=== PATIENT | female | born 1965 | race Caucasian/White ===

== ENCOUNTER → 2016-04-17 | Outpatient (REF) | payer SELFPAY | LOC: LAB 17:56 | PROVIDERS: ATTEND Family Medicine | DX: Z53.9 Procedure and treatment not carried out, unspecified reason (principal) | CPT/HCPCS: 87088 ==

== ENCOUNTER 2016-04-24 16:26 | Outpatient (REF) | payer OTHER | END 2016-04-24 16:27 | LOC: CLAB.HERRA 16:26 | PROVIDERS: ATTEND Family Medicine | DX: R10.9 Unspecified abdominal pain (principal) | CPT/HCPCS: 87088 ==

== ENCOUNTER 2016-05-17 12:30 | Emergency (ER) | payer OTHER ==
[~2016-05-17] VITALS: Ht 162.6 cm; Wt 121.0 kg
[2016-05-17] MEDS ORDERED: ONDANSETRON 4 MG (ZOFRAN) ORAL DISSOLVE TAB PO ONE (13:20)
[2016-05-17 13:45] LABS: BASOPHILS % (AUTO) 0 % (0-2); EOSINOPHILS # (AUTO) 0.1 10^3uL; EOSINOPHILS % (AUTO) 1 % (0-4); LYMPHOCYTES # (AUTO) 3.1 X10^3; MEAN CORPUSCULAR HEMOGLOBIN 30.3 PG (26.0-34.0); MEAN CORPUSCULAR HGB CONC 34.7 g/dL (31.0-37.0); MEAN CORPUSCULAR VOLUME 87 FL (80-100); MEAN PLATELET VOLUME 9.2 FL (6.0-9.5); MONOCYTES # (AUTO) 1.3 X10^3; MONOCYTES % (AUTO) 11 % (3-11); NEUTROPHILS # (AUTO) 7.5 X10^3; NEUTROPHILS % (AUTO) 63 % (51-67); PLATELET COUNT 224 10^3uL (150-450); WHITE BLOOD COUNT 11.92 10^3uL (4.0-11.0)
[2016-05-17 13:46] LABS: BILIRUBIN,URINE Negative (Negative); COLOR,URINE Dark Yellow; GLUCOSE, URINE (UA) Negative (Negative); LEUKOCYTE ESTERASE ,URINE 2+ (Negative); UROBILINOGEN,URINE 0.2 mg/dL (0.2-1.0)
[2016-05-17 13:47] LABS: CLARITY,URINE Slightly Cloudy
[2016-05-17 13:53] LABS: URINE CENTRIFUGED VOLUME 12 mL
--- NOTE | 2016-05-17 14:05 | NUR ---
pt states nausea is better
--- NOTE | 2016-05-17 14:05 | NUR ---
ice water and soda crackers requested by pt, permission from to give
[2016-05-17 14:10] LABS: ALBUMIN 4.1 g/dL (3.4-5.0); ALKALINE PHOSPHATASE 302 U/L (38-126); ANION GAP 16.6 MEQ/L (3-15); BUN/CREATININE RATIO 10 (10-20); LIPASE* 83 U/L (23-300); TOTAL PROTEIN 7.9 g/dL (6.4-8.5)
[2016-05-17 15:10] VITALS: BP 121/77
[2016-05-18 20:24] LABS: HEPATITIS A ANTIBODY IGM Negative; HEPATITIS B CORE ABY IGM Negative; HEPATITIS B SURFACE ANTIGEN C Negative
== END 2016-05-17 15:14 | disposition home or self-care (01) ==
LOC: ED 12:33
DX: K52.9 Noninfective gastroenteritis and colitis, unspecified (principal); R74.0 Nonspecific elevation of levels of transaminase and lactic acid dehydrogenase [LDH]
CPT/HCPCS: 36415; 80053; 80074; 80329; 81003; 81015; 83690; 85025; 86140; 87088; 99282

== ENCOUNTER → 2016-06-02 | Outpatient (CLI) | payer OTHER | LOC: RAD 08:41 | PROVIDERS: ATTEND Family Medicine | DX: R10.9 Unspecified abdominal pain (principal) | CPT/HCPCS: 76770 ==

== ENCOUNTER 2016-07-09 14:30 | Outpatient (RCR) | payer OTHER ==
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
[~2016-07-09 14:30] MED LIST: ARIP10TA14 PO; BUSP10TA95 PO; CIPR-226 PO; CYCL10TA45 PO; DULO60CA7 PO; FLUC150T PO; GLUC-12 PO; IBUP-1772 PO; MELA3TAB44 PO; MULT-301 PO; OMEP20CA12 PO; ONDAN4ODT PO; SULF1TAB35 PO; TRIA10.8 NS
== END 2016-07-31 12:00 | disposition home or self-care (01) ==
LOC: PT 14:30
PROVIDERS: ATTEND Family Medicine
DX: M54.5 Low back pain (principal)